=== PATIENT | female | born 1955 | race Caucasian/White ===

== ENCOUNTER → 2018-03-19 | Outpatient (CLI) | payer BC | LOC: M.SLEEPLAB 03-14 21:00 | DX: I48.0 Paroxysmal atrial fibrillation (principal); R06.83 Snoring; R00.1 Bradycardia, unspecified ==

== ENCOUNTER → 2020-08-17 | Outpatient (CLI) | payer OTHER | LOC: M.RAD 12:52 | PROVIDERS: ATTEND Nurse Practitioner Family | DX: Z12.31 Encounter for screening mammogram for malignant neoplasm of breast (principal); N64.89 Other specified disorders of breast ==

== ENCOUNTER → 2020-08-26 | Outpatient (CLI) | payer OTHER | LOC: M.RAD 08-19 08:35 | PROVIDERS: ATTEND Nurse Practitioner Family | DX: R92.2 Inconclusive mammogram (principal) ==